=== PATIENT | female | born 1975 | race Caucasian/White ===

== ENCOUNTER → 2020-06-28 15:46 | Outpatient (CLI) | payer OTHER, SELFPAY ==
--- NOTE | ~2020-06-28 | MM_ITS ---
EXAMINATION: MM screening [facility] w rosalio HISTORY: Screening mammogram TECHNIQUE: Craniocaudal and mediolateral oblique 3-D tomosynthesis images were obtained and synthetic 2-D images were generated. CAD analysis was submitted and interpreted. COMPARISON: 02/26/2019 bilateral digital screening mammogram BREAST PARENCHYMAL COMPOSITION: The breasts are heterogeneously dense, which may obscure small masses . FINDINGS: There is no evidence of suspicious mass, calcification, or architectural distortion to sugg est malignancy in either breast. There has been no suspicious interval change. IMPRESSION: 1. No mammographic evidence of malignancy. 2. Recommend routine screening mammography in one year. BI-RADS Category 1: Negative Reviewed, dictated and finalized at location A. NDS GRADER
== END ==
PROVIDERS: PCP Family Medicine; Visit Provider Obstetrics & Gynecology
DX: Z12.31 Encounter for screening mammogram for malignant neoplasm of breast (principal)
CPT/HCPCS: 77063; 77067

== ENCOUNTER → 2021-08-12 15:52 | Outpatient (CLI) | payer OTHER, SELFPAY ==
--- NOTE | ~2021-08-12 | MM_ITS ---
EXAMINATION: MM screening [facility] w rosalio HISTORY: Screening TECHNIQUE: Craniocaudal and mediolateral oblique 3-D tomosynthesis images were obtained and synthetic 2-D images were generated. CAD analysis was submitted and interpreted. COMPARISON: Comparison to multiple prior studies sequentially, with oldest reviewed study dated 02/26. BREAST PARENCHYMAL COMPOSITION: The breasts are heterogeneously dense, which may obscure small masses . FINDINGS: There is no evidence of suspicious mass, calcification, or architectural distortion to sugg est malignancy in either breast. There has been no suspicious interval change. IMPRESSION: 1. No mammographic evidence of malignancy. 2. Recommend routine screening mammography in one year. BI-RADS Category 1: Negative Reviewed, dictated and finalized at location B. P BLENDER
== END ==
PROVIDERS: PCP Family Medicine; Visit Provider Obstetrics & Gynecology
DX: Z12.31 Encounter for screening mammogram for malignant neoplasm of breast (principal)
CPT/HCPCS: 77063; 77067

== ENCOUNTER → 2022-10-24 15:12 | Outpatient (CLI) | payer OTHER, SELFPAY ==
--- NOTE | ~2022-10-24 | MM_ITS ---
EXAMINATION: MM screening [facility] BI w rosalio HISTORY: Screening TECHNIQUE: Craniocaudal and mediolateral oblique 3-D tomosynthesis images were obtained and synthetic 2-D images were generated. CAD analysis was submitted and interpreted. COMPARISON: Comparison to multiple prior studies sequentially, with oldest reviewed study dated 02/26. BREAST PARENCHYMAL COMPOSITION: The breasts are heterogeneously dense, which may obscure small masses FINDINGS: There is no evidence of suspicious mass, calcification, or architectural distortion to sugg est malignancy in either breast. There has been no suspicious interval change. IMPRESSION: 1. No mammographic evidence of malignancy. 2. Recommend routine screening mammography in one year. BI-RADS Category 1: Negative Reviewed, dictated and finalized at location A.
== END ==
PROVIDERS: PCP Family Medicine; Visit Provider Obstetrics & Gynecology
DX: Z12.31 Encounter for screening mammogram for malignant neoplasm of breast (principal)
CPT/HCPCS: 77063; 77067

== ENCOUNTER 2024-02-01 18:29 | Emergency (ER) | payer OTHER, SELFPAY ==
[2024-02-01 18:38] VITALS: BP 147/98; PULSE 60; RESP 20; O2SAT 98
[2024-02-01] MEDS: TETANUS,DIPHTHERIA,AC PERTUSSIS ADULT (0.5 ML) BOOSTRIX IM (19:10)
[2024-02-01 19:24] VITALS: TEMP 36.7
--- NOTE | 2024-02-01 19:29 | ED.WOUNDLAC ---
HPI - Wound/Laceration General Chief Complaint: Wound/Laceration Stated Complaint: R HAND LACERATION Time Seen by Provider: 02/01/24 18:53 Source: patient, family () and RN notes reviewed Mode of arrival: ambulatory Limitations: no limitations History of Present Illness HPI narrative: Patient presents today complaining of lacerations to hand. She was putting together an [employer] bookshelf when she was cut with a sheet metal layout worker slide across 3 of her fingers approximately 1 hour prior to arrival. She did no [id number] treatment prior to arrival. She is not up-to-date on her tetanus vaccine. Currently rates her pain 02/05. Denies numbness or tingling Related Data Home Medications Medication Instructions Recorded Confirmed estradiol-norethindrone acet 1 1 tablet PO DAILY 08/01/23 02/01/24 mg-0.5 mg tablet (Activella) Allergies Allergy/AdvReac Type Severity Reaction Status Date / Time Opioids - Morphine Analogues AdvReac Mild Nausea and Verified 02/01/24 19:25 Vomiting Review of Systems Review of Systems: CONSTITUTIONAL: Denies body aches, fever, chills, or sweats. EYES: Denies visual changes, redness, or discharge. ENT: Denies rhinorrhea, congestion, sore throat, or otalgia. CARDIOVASCULAR: Denies chest pain, palpitations, or edema. RESPIRATORY: Denies cough or dyspnea. GASTROINTESTINAL: Denies abdominal pain, nausea, vomiting, or diarrhea. GENITOURINARY: Denies dysuria or hematuria. SKIN: Denies rash, itching. + finger lacerations MUSCULOSKELETAL: Denies back pain, joint pain, or myalgia. NEUROLOGIC: Denies headache, numbness, tingling, or weakness. PSYCH: Denies depression or anxiety. [facility] Past Medical History Medical History Abnormal fasting glucose glucose 93 with hemoglobin A1c 5.1 on 06/22/2021. Glucose 111 on 06/24/2022. glucose 88 with hemoglobin A1c 5.1 on 07/13/2023. BMI 24.0-24.9, adult Body mass index [BMI] 25.0-25.9, adult (02/03/19) Breast cancer screening by mammogram normal mammogram 08/12/2021. Normal mammogram 10/24/2022. Chronic bilateral low back pain without sciatica Chronic constipation Chronic right-sided low back pain without sciatica Colon cancer screening Encounter for wellness examination in adult Essential (primary) hypertension GERD (gastroesophageal reflux disease) Hormone replacement therapy prescribed by materials assistant August,. Impacted cerumen of right ear Leukocytopenia, unspecified WBC 3.4 on 06/22/2021. CBC normal at 4.0 on 06/24/2022 with platelets 216. Microscopic hematuria urinalysis normal on 06/22/2021. contaminated sample 06/24/2022. Migraine without aura and without status migrainosus, not intractable Family History Family History Mother Family history of mental disorder Hypertension Father Hypertension Family history of gastrointestinal disorder Family history of kidney disease Family history of chronic obstructive pulmonary disease Grandparent Family history of cardiovascular disease, Onset Age: 93 Family history of malignant neoplasm, Onset Age: 75 Social History Social History Smoking status: Never smoker Alcohol intake: current Substance use: never Substance use type: does not use Lack of Transportation: No Lack of Food: Never True Current Housing: I Have Housing Concerned About Future Housing: No Difficulty Paying Gas/Electric Bills: No Difficulty Paying for Meds: No Currently Unemployed: No Education: Master's Degree or Higher Difficulty w/ Childcare or Family Care: No Comments Reviewed Exam Narrative: GENERAL: Well-appearing, well-nourished, and in no acute distress. HEAD: Normocephalic, atraumatic. EYES: EOMI. No redness or drainage. Conjunctivae normal. ENT: Mucous membranes pink and mo
== END 2024-02-01 19:30 | disposition home or self-care (01) ==
PROVIDERS: Emergency Provider Nurse Practitioner; PCP Family Medicine
DX: S61.212A Laceration without foreign body of right middle finger without damage to nail, initial encounter (principal); S61.214A Laceration without foreign body of right ring finger without damage to nail, initial encounter; S61.216A Laceration without foreign body of right little finger without damage to nail, initial encounter; W22.8XXA Striking against or struck by other objects, initial encounter; Z23 Encounter for immunization; K21.9 Gastro-esophageal reflux disease without esophagitis
CPT/HCPCS: 12001; 90471; 90715; 99212; G0463

== ENCOUNTER 2024-11-13 15:05 | Outpatient (CLI) | payer OTHER, SELFPAY ==
--- NOTE | ~2024-11-13 | MM_ITS ---
EXAMINATION: MM screening [facility] w rosalio HISTORY: Screening TECHNIQUE: Craniocaudal and mediolateral oblique 3-D tomosynthesis images were obtained and synthetic 2-D images were generated. CAD analysis was submitted and interpreted. COMPARISON: Comparison to multiple prior studies sequentially, with oldest reviewed study dated 02/26. BREAST PARENCHYMAL COMPOSITION: Dense: The breasts are extremely dense, which lowers the sensitivity of mammography. FINDINGS: There is no evidence of suspicious mass, calcification, or architectural distortion to sugg est malignancy in either breast. There has been no suspicious interval change. IMPRESSION: 1. No mammographic evidence of malignancy. 2. Recommend routine screening mammography in one year. BI-RADS Category 1: Negative Reviewed, dictated and finalized at location B.
== END 2024-11-13 15:06 | disposition home or self-care (01) ==
LOC: MICIMG 15:05
PROVIDERS: PCP Family Medicine; Visit Provider Obstetrics & Gynecology
DX: Z12.31 Encounter for screening mammogram for malignant neoplasm of breast (principal)
CPT/HCPCS: 77063; 77067

== ENCOUNTER 2025-04-06 17:03 | Emergency (ER) | payer OTHER, SELFPAY ==
[2025-04-06 17:15] VITALS: BP 133/84; PULSE 56; RESP 16; TEMP 36.5; O2SAT 100
--- NOTE | 2025-04-06 17:15 | ED_ITS ---
HPI - Skin/Abscess/Foreign Bdy General Chief complaint: Wound/Laceration Stated complaint: Bite on L leg Time Seen by Provider: 04/06/25 17:38 Source: patient, RN notes reviewed and old records reviewed Mode of arrival: ambulatory Limitations: no limitations History of Present Illness HPI narrative: 49-year-old female presents to the [facility] with concerns of a painful red areas to the left inner thigh. States the 1 closest to the groin started on Sunday, has progressed. Reports that is being a stabbing tingling pain. Has tried applying calamine lotion with no relief. Denies any fevers. Full range of motion of the hip and knee. Related Data Allergies Allergy/AdvReac Type Severity Reaction Status Date / Time Opioids - Morphine Analogues AdvReac Mild Nausea and Verified 04/06/25 17:20 Vomiting Review of Systems 2 Review of Systems: All systems reviewed & are unremarkable except as noted in HPI and below Constitutional: Constitutional: Reports no additional constitutional complaints ENT: Reports system reviewed and no additional complaints, except as documented Cardiovascular: Cardiovascular: Reports no additional cardiovascular complaints, Denies chest pain and Denies dyspnea Respiratory: Respiratory: Reports no additional respiratory complaints, Denies chest congestion, Denies cough and Denies dyspnea Musculoskeletal: Musculoskeletal: Reports no additional musculoskeletal complaints Integumentary/Breasts: Skin/Breast: Reports as per HPI [facility] Past Medical History Medical History Hormone replacement therapy prescribed by relief worker August,. Colon cancer screening Impacted cerumen of right ear GERD (gastroesophageal reflux disease) Breast cancer screening by mammogram normal mammogram 08/12/2021. Normal mammogram 10/24/2022. Normal mammogram 11/13/2024. Chronic bilateral low back pain without sciatica BMI 24.0-24.9, adult Encounter for wellness examination in adult Leukocytopenia, unspecified WBC 3.4 on 06/22/2021. CBC normal at 4.0 on 06/24/2022 with platelets 216. Microscopic hematuria urinalysis normal on 06/22/2021. contaminated sample 06/24/2022. Contaminated sample with squamous cells and RBCs on 07/29/2024. Abnormal fasting glucose glucose 93 with hemoglobin A1c 5.1 on 06/22/2021. Glucose 111 on 06/24/2022. glucose 88 with hemoglobin A1c 5.1 on 07/13/2023. Fasting glucose 101 with hemoglobin A1c 5.4 and GFR 64 on 07/29/2024. Body mass index [BMI] 25.0-25.9, adult (02/03/19) Chronic constipation Chronic right-sided low back pain without sciatica Essential (primary) hypertension Migraine without aura and without status migrainosus, not intractable Family History Family History Mother Family history of mental disorder Hypertension Father Hypertension Family history of gastrointestinal disorder Family history of kidney disease Family history of chronic obstructive pulmonary disease Grandparent Family history of cardiovascular disease, Onset Age: 93 Family history of malignant neoplasm, Onset Age: 75 Social History Social History Smoking status: Never smoker Alcohol intake: current Substance use: never Substance use type: does not use Lack of Transportation: No Lack of Food: Never True Current Housing: I Have Housing Concerned About Future Housing: No Difficulty Paying Gas/Electric Bills: No Difficulty Paying for Meds: No Currently Unemployed: No Education: Master's Degree or Higher Difficulty w/ Childcare or Family Care: No Comments At the time of my signature, I reviewed and agree with the nursing past medical, surgical, social, and family history. There is no relevant family history pertinent to the patient complaint. Exam 2 Const: General: cooperative, healthy appearing, comfortable, no acute distress, well developed, alert and well nourished Nutritional Appearance: w ell nourished Orientation/consciousness: patient oriented x3 Limitations: no limitations HENMT: Head: normal to inspection Eyes: General: appearance normal, both eyes and all related structures A lignment and Position: alignment normal Neck: Neck: normal visual inspection, full ROM, no lymphadenopathy and no meningeal signs Chest: Chest palpation & inspection: normal inspection of the chest Resp: Effort & Inspection: normal respiratory effort and able to speak in complete sentences Auscultation: clear to auscultation bilaterally, no crackles, no rales, no rhonchi and no wheezes Cardio: Rate: regular rate Skin: General skin exam: normal color and no rashes or lesions noted Full body images: 1. Red area approximately 3 cm x 3 cm irregular with multiple scabbed areas 2. Red painful area to by 2 cm raised, p ossible start of vesicular areas Neuro: General: patient oriented x3, gait normal, moves all extremities and no meningeal signs Cognition (Neuro): normal cognition Speech: normal speech Gait exam (Neuro): Normal gait present Extrem: General: normal to inspection, full ROM, capillary refill normal and normal gait Psych: Appearance: grossly normal and well kempt Mental Status: mental status grossly normal Speech and movement: Normal speech and movement present and Clear speech present Affect: normal affect Attitude: cooperative Course Course Level of Care: Express Care Visit Vital Signs Vital signs: Vital Signs Temperature 97.7 F 04/06/25 17:15 Pulse Rate 56 L 04/06/25 17:15 Respiratory Rate 16 04/06/25 17:15 Blood Pressure 133/84 04/06/25 17:15 Pulse Oximetry 100 04/06/25 17:15 Oxygen Delivery Room Air 04/06/25 17:15 Temperature 97.7 F 04/06/25 17:15 Pulse Rate 56 L 04/06/25 17:15 Respiratory Rate 16 04/06/25 17:15 Blood Pressure 133/84 04/06/25 17:15 Pulse Oximetry 100 04/06/25 17:15 Oxygen Delivery Room Air 04/06/25 17:15 Reviewed MDM - Skin/Abscess/Foreign Bdy MDM Narrative Medical decision making narrative: Patient sitting in exam room. Patient is nontoxic, vitals stable. Patient presents with a rash by keeps spreading. Patient describes it is being very painful. Shingles versus dermatitis, will cover for both Patient is appropriate for outpatient treatment with close follow-up Discharge instructions reviewed with patient, as well as provided in writing per nursing staff. The instructions also include specific and strict return/GO TO THE ER as well as f/u information. All questions have been answered, and the patient deny any further questions with discharge and discharge plan. Some parts of this dictation were generated by voice recognition software and may contain typographical and/or grammatical inaccuracies. Differential Diagnosis Differential diagnosis: Likely abscess of skin or subcutaneous tissue, urticaria, herpes zoster, cellulitis, eczema, insect bites and contact dermatitis Critical Care Time Critical Care Time Critical Care Time: No Discharge Plan Discharge Clinical Impression: Shingles Patient Disposition: Home Condition: Stable Instructions: Shingles (ED) Additional Instructions: Keep clean and dry Take medications as prescribed Follow-up with primary care provider Patient Language: Hebrew Prescriptions: New valacyclovir 1 gram tablet 1,000 mg PO TID 7 Days Qty: 21 0RF prednisone 20 mg tablet See Rx Instructions .Route .COMPLEX Qty: 9 0RF Rx Instructions: Take 40 mg daily for 3 days, 20 mg daily for 3 days No Action metoprolol succinate 100 mg tablet extended release 24 hr 100 mg PO DAILY Qty: 90 3RF meloxicam 15 mg tablet 15 mg PO DAILY PRN (Reason: pain) Qty: 30 11RF estradiol-norethindrone acet [Activella] 1-0.5 mg tablet 1 tablet PO DAILY Qty: 84 3RF Follow-up/Referrals: Harpreet Aaron MD [Primary Care Provider, Family Practice] Stand Alone Forms: Work/School Release IP Time of Disposition: 17:50
== END 2025-04-06 17:57 | disposition home or self-care (01) ==
PROVIDERS: Emergency Provider Nurse Practitioner; PCP Family Medicine
DX: B02.9 Zoster without complications (principal); I10 Essential (primary) hypertension; K21.9 Gastro-esophageal reflux disease without esophagitis
CPT/HCPCS: 99213; G0463